=== PATIENT | female | born 2000 | race Two or more races ===

== ENCOUNTER → 2020-05-14 08:00 | Outpatient (CLI) | payer OTHER | END | disposition home or self-care (01) | LOC: LAB 08:00 → ADM 05-21 08:30 → EDSTATUS 05-21 08:30 → CIR.AMB 05-21 08:30 | PROVIDERS: ATTEND Plastic Surgery | DX: N62 Hypertrophy of breast (principal); Z20.828 Contact with and (suspected) exposure to other viral communicable diseases ==